=== PATIENT | female | born 1960 | race Asian ===

== ENCOUNTER → 2018-09-13 | Outpatient (CLI) | payer BC ==
[2018-09-13 08:30] LABS: INR 0.91; PROTIME 12.4 Sec (11.9-14.9)
[2018-09-13 08:31] LABS: C-REACTIVE PROTEIN HIGH SENSI 0.06 mg/dl (0.00-0.74)
[2018-09-13 08:31] LABS: PARTIAL THROMBOPLASTIN TIME 31.4 Sec (23.0-35.0)
[2018-09-13 09:53] LABS: ERYTHROCYTE SEDIMENTATION RATE 12 mm/Hr (0-30)
[2018-09-13 16:57] LABS: RAPID PLASMA REAGIN NONREACTIVE (NR)
== END | disposition home or self-care (01) ==
LOC: LAB 06:53
DX: H35.60 Retinal hemorrhage, unspecified eye (principal)
CPT/HCPCS: 85610; 85613; 85651; 85730; 86140; 86592